=== PATIENT | male | born 1995 | race Caucasian/White ===

== ENCOUNTER 2020-11-10 15:37 | Emergency (ER) | payer OTHER ==
[2020-11-10] MEDS ORDERED: CLEOCIN HCL300 MG PO (17:59)
[2020-11-10] MEDS ORDERED: NAPROSYN500 MG PO (17:59)
== END 2020-11-10 18:06 | disposition home or self-care (01) ==
LOC: ER1 15:37
DX: K02.9 Dental caries, unspecified (principal); K05.00 Acute gingivitis, plaque induced
CPT/HCPCS: 99282

== ENCOUNTER → 2021-06-09 | Outpatient (CLI) | payer OTHER ==
[~2021-06-09] MED LIST: CLEOCIN HCL300 MG PO; NAPROSYN500 MG PO
== END ==
LOC: RAD 16:03
DX: M25.531 Pain in right wrist (principal); M79.601 Pain in right arm
CPT/HCPCS: 73090; 73110